=== PATIENT | male | born 1945 | race Asian ===

== ENCOUNTER 2019-08-26 22:23 | Inpatient (IN) | payer OTHER ==
[~2019-08-26] VITALS: Ht 167.6 cm; Wt 66.1 kg
[2019-08-27 01:57] VITALS: BP 148/77; PULSE 104; RESP 16
[2019-08-27 02:27] VITALS: Ht 167.6 cm; Wt 66.1 kg
[2019-08-27] MEDS ORDERED: NACL 0.9% 3 ML SYG IV SCH (02:30)
[2019-08-27] MEDS ORDERED: ONDANSETRON 4 MG INJ IV PRN (02:30)
[2019-08-27] MEDS: SOD CHLORIDE 0.9% 1,000 ML IV SCH ×2 (02:48→20:21)
[2019-08-27] MEDS: ACETAMINOPHEN 325 MG TAB PO PRN ×2 (06:14→13:51)
[2019-08-27 08:20] VITALS: BP 131/67; PULSE 76; RESP 20
[2019-08-27] MEDS: CEFTRIAXONE 1 GM/50 ML (PMX) 50 ML IVPB SCH ×2 (08:55→20:21)
[2019-08-27] MEDS: HEPARIN 5,000 UNIT/1 ML VIAL SC SCH ×2 (08:59→20:23)
[2019-08-27] MEDS: AZITHROMYCIN 500MG/NS (PMX) 250 ML IVPB SCH (10:53)
[2019-08-27 14:37] VITALS: BP 155/74; PULSE 94; RESP 20
[2019-08-27] MEDS: ALPRAZOLAM 0.5 MG TAB PO PRN (20:21)
[2019-08-27 20:31] VITALS: BP 140/70; PULSE 84; RESP 18
[2019-08-28 02:00] VITALS: BP 154/78; PULSE 96; RESP 19
[2019-08-28 07:55] VITALS: BP 133/67; PULSE 96; RESP 17
[2019-08-28] MEDS: CEFTRIAXONE 1 GM/50 ML (PMX) 50 ML IVPB SCH ×2 (08:58→19:50)
[2019-08-28] MEDS: HEPARIN 5,000 UNIT/1 ML VIAL SC SCH ×2 (08:59→19:51)
[2019-08-28] MEDS: ACETAMINOPHEN 325 MG TAB PO PRN (09:33)
[2019-08-28] MEDS: AZITHROMYCIN 500MG/NS (PMX) 250 ML IVPB SCH (09:34)
[2019-08-28] MEDS: SOD CHLORIDE 0.9% 1,000 ML IV SCH ×2 (11:30→15:52)
[2019-08-28] MEDS ORDERED: SOD PHOS MONO/DIBAS 250 MG TAB PO ONE (12:00)
[2019-08-28 14:00] VITALS: BP 118/64; PULSE 91; RESP 18
[2019-08-28] MEDS: GUAIFENESIN/DM 5ML CUP PO PRN (17:22)
[2019-08-28] MEDS: ALPRAZOLAM 0.5 MG TAB PO PRN (19:50)
[2019-08-28 20:15] VITALS: BP 159/82; PULSE 101; RESP 19
[2019-08-29 02:00] VITALS: BP 135/66; PULSE 90; RESP 18
[2019-08-29] MEDS: SOD CHLORIDE 0.9% 1,000 ML IV SCH (06:11)
[2019-08-29 08:55] VITALS: BP 161/77; PULSE 90; RESP 20
[2019-08-29] MEDS: CEFTRIAXONE 1 GM/50 ML (PMX) 50 ML IVPB SCH ×2 (09:06→20:20)
[2019-08-29] MEDS: GUAIFENESIN/DM 5ML CUP PO PRN (09:07)
[2019-08-29] MEDS: SENNA TAB PO SCH (09:08)
[2019-08-29] MEDS: HEPARIN 5,000 UNIT/1 ML VIAL SC SCH ×2 (09:09→20:23)
[2019-08-29] MEDS: AZITHROMYCIN 500MG/NS (PMX) 250 ML IVPB SCH (09:43)
[2019-08-29 14:55] VITALS: BP 159/75; PULSE 101; RESP 18
[2019-08-29] MEDS: ACETAMINOPHEN 325 MG TAB PO PRN (15:12)
[2019-08-29 16:19] VITALS: BP 137/67; PULSE 95; RESP 19
[2019-08-29 17:00] VITALS: PULSE 89
[2019-08-29 20:00] VITALS: BP 133/86; PULSE 97; RESP 18
[2019-08-30] MEDS: SOD CHLORIDE 0.9% 1,000 ML IV SCH ×2 (01:16→18:57)
[2019-08-30 02:00] VITALS: BP 163/78; PULSE 95; RESP 18
[2019-08-30 08:00] VITALS: BP 161/79; PULSE 106; RESP 16
[2019-08-30] MEDS: SENNA TAB PO SCH (09:00)
[2019-08-30] MEDS: CEFTRIAXONE 1 GM/50 ML (PMX) 50 ML IVPB SCH ×3 (09:00→21:56)
[2019-08-30] MEDS: HEPARIN 5,000 UNIT/1 ML VIAL SC SCH ×3 (09:00→22:03)
[2019-08-30] MEDS: AZITHROMYCIN 500MG/NS (PMX) 250 ML IVPB SCH ×2 (09:00→09:50)
[2019-08-30] MEDS: GUAIFENESIN/DM 5ML CUP PO PRN ×2 (09:24→17:20)
[2019-08-30 14:00] VITALS: BP 101/73; PULSE 101; RESP 18
[2019-08-30] MEDS: ACETAMINOPHEN 650MG/20.3ML CUP PO PRN (16:28)
[2019-08-30] MEDS: NYSTATIN SUSP 5 ML CUP PO SCH ×2 (17:20→21:56)
[2019-08-30 20:40] VITALS: BP 130/71; PULSE 90; RESP 18
[2019-08-31] VITALS (15 sets, daily range): BP systolic 130–195; BP diastolic 76–171; PULSE 95–116; RESP 20–31
[2019-08-31] MEDS ORDERED: IPRATROPIUM (NEB) 0.5 MG/2.5 ML AMP HHN SCH ×4 (02:00→06:30)
[2019-08-31] MEDS ORDERED: LEVALBUTEROL (NEB) 0.63 MG/3 ML AMP HHN SCH ×4 (02:30→06:30)
[2019-08-31] MEDS: IPRATROPIUM (NEB) 0.5 MG/2.5 ML AMP HHN SCH ×2 (06:05→09:00)
[2019-08-31] MEDS: FLUTICASONE/VILANTEROL 100-25 INH SCH ×2 (09:00→11:30)
[2019-08-31] MEDS: LEVOFLOXACIN 500 MG TAB PO ONE ×2 (09:00→11:31)
[2019-08-31] MEDS: AZITHROMYCIN 500MG/NS (PMX) 250 ML IVPB SCH (09:00)
[2019-08-31] MEDS ORDERED: SOD CHLORIDE 0.9% 100 ML ONE (09:29)
[2019-08-31] MEDS ORDERED: IOHEXOL 300MG/ML 150 ML BTL ONE (09:29)
[2019-08-31] MEDS ORDERED: POTASSIUM CHLORIDE (SR) 20 MEQ TAB PO STA (10:32)
[2019-08-31] MEDS: NYSTATIN SUSP 5 ML CUP PO SCH ×4 (11:29→21:09)
[2019-08-31] MEDS: CEFTRIAXONE 1 GM/50 ML (PMX) 50 ML IVPB SCH (11:30)
[2019-08-31] MEDS: SENNA TAB PO SCH (11:30)
[2019-08-31] MEDS: POTASSIUM CHLORIDE 100 ML IVPB SCH ×5 (11:30→21:10)
[2019-08-31] MEDS: POTASSIUM CHLORIDE 20 MEQ POWDER FOR ORAL SOLN PO ONE ×2 (11:30→11:39)
[2019-08-31] MEDS: HEPARIN 5,000 UNIT/1 ML VIAL SC SCH ×2 (11:37→21:24)
[2019-08-31] MEDS ORDERED: VANCOMYCIN IV PER PHARMACY XX SCH (12:00)
[2019-08-31] MEDS: IPRATROPIUM (NEB) 0.5 MG/2.5 ML AMP HHN PRN ×2 (12:33→16:47)
[2019-08-31] MEDS: LEVALBUTEROL (NEB) 0.63 MG/3 ML AMP HHN PRN ×2 (12:33→16:47)
[2019-08-31] MEDS ORDERED: VANCOMYCIN 1.25 GM/NS 250 ML 250 ML IVPB SCH (14:00)
[2019-08-31] MEDS: SOD CHLORIDE 0.9% 1,000 ML IV SCH (15:37)
[2019-08-31] MEDS: CEFEPIME 1GM/50 ML (PMX) 50 ML IVPB SCH ×2 (15:43→21:11)
[2019-08-31] MEDS: LEVOFLOXACIN 500MG/D5W (PMX) 100 ML IVPB SCH (15:50)
[2019-09-01 00:40] VITALS: BP 160/84; PULSE 92; RESP 25
[2019-09-01 03:37] VITALS: BP 139/85; PULSE 98; RESP 23
[2019-09-01] MEDS: VANCOMYCIN 750 MG (PMX) 250 ML IVPB SCH ×2 (03:39→13:52)
[2019-09-01] MEDS ORDERED: LEVOFLOXACIN 500 MG TAB PO SCH (06:00)
[2019-09-01 07:48] VITALS: BP 157/88; PULSE 99; RESP 18
[2019-09-01] MEDS: SENNA TAB PO SCH (08:23)
[2019-09-01] MEDS: NYSTATIN SUSP 5 ML CUP PO SCH ×4 (08:26→20:45)
[2019-09-01] MEDS: CEFEPIME 1GM/50 ML (PMX) 50 ML IVPB SCH ×2 (08:26→20:42)
[2019-09-01] MEDS: HEPARIN 5,000 UNIT/1 ML VIAL SC SCH ×2 (08:35→20:44)
[2019-09-01] MEDS ORDERED: SOD FERRIC GLUC COMPLX 125 MG in SOD CHLORIDE 0.9% 100 ML IVPB ONE (09:00)
[2019-09-01] MEDS ORDERED: IOHEXOL 14.3 MG(I)/ML (ADULT) BTL PO ONE (09:00)
[2019-09-01] MEDS: SOD CHLORIDE 0.9% 1,000 ML IV SCH (10:17)
[2019-09-01] MEDS: LEVOFLOXACIN 500MG/D5W (PMX) 100 ML IVPB SCH (11:44)
[2019-09-01 12:12] VITALS: BP 158/90; PULSE 99; RESP 20
[2019-09-01] MEDS: SOD FERRIC GLUC COMPLX 125 MG in SOD CHLORIDE 0.9% 100 ML IVPB SCH (13:44)
[2019-09-01 16:33] VITALS: BP 147/89; PULSE 97; RESP 18
[2019-09-01 19:54] VITALS: BP 166/86; PULSE 86; RESP 20
[2019-09-02] VITALS (8 sets, daily range): BP systolic 116–177; BP diastolic 77–97; PULSE 94–104; RESP 18–22
[2019-09-02] MEDS: VANCOMYCIN 750 MG (PMX) 250 ML IVPB SCH (01:44)
[2019-09-02] MEDS: NYSTATIN SUSP 5 ML CUP PO SCH ×4 (08:12→20:08)
[2019-09-02] MEDS: SENNA TAB PO SCH (08:12)
[2019-09-02] MEDS: CEFEPIME 1GM/50 ML (PMX) 50 ML IVPB SCH ×2 (08:36→20:31)
[2019-09-02] MEDS: HEPARIN 5,000 UNIT/1 ML VIAL SC SCH ×2 (08:42→20:29)
[2019-09-02] MEDS: VANCOMYCIN 1.25 GM/NS 250 ML 250 ML IVPB SCH ×2 (10:21→22:40)
[2019-09-02] MEDS ORDERED: POTASSIUM CHLORIDE 100 ML IVPB ONE (11:00)
[2019-09-02] MEDS: LEVOFLOXACIN 500MG/D5W (PMX) 100 ML IVPB SCH (11:59)
[2019-09-02] MEDS: SOD CHLORIDE 0.9% 1,000 ML IV SCH (12:01)
[2019-09-02] MEDS: SOD FERRIC GLUC COMPLX 125 MG in SOD CHLORIDE 0.9% 100 ML IVPB SCH (14:12)
[2019-09-02] MEDS: FLUCONAZOLE 200 MG (PMX) 100 ML IVPB SCH (16:46)
[2019-09-02] MEDS ORDERED: hydrALAzine 20 MG INJ IV PRN (20:00)
[2019-09-03] VITALS (27 sets, daily range): BP systolic 122–174; BP diastolic 67–110; PULSE 75–107; RESP 17–35
[2019-09-03] MEDS: SOD CHLORIDE 0.9% 1,000 ML IV SCH ×2 (05:24→12:23)
[2019-09-03] MEDS: CEFEPIME 1GM/50 ML (PMX) 50 ML IVPB SCH (08:28)
[2019-09-03] MEDS: HEPARIN 5,000 UNIT/1 ML VIAL SC SCH ×2 (08:34→21:43)
[2019-09-03] MEDS: SENNA TAB PO SCH (09:06)
[2019-09-03] MEDS: NYSTATIN SUSP 5 ML CUP PO SCH ×4 (09:06→21:00)
[2019-09-03] MEDS ORDERED: POTASSIUM CHLORIDE (SR) 20 MEQ TAB PO STA (09:28)
[2019-09-03] MEDS: IPRATROPIUM (NEB) 0.5 MG/2.5 ML AMP HHN SCH ×3 (13:01→21:46)
[2019-09-03] MEDS: LEVALBUTEROL (NEB) 1.25 MG/0.5 ML AMP HHN SCH ×3 (13:01→21:46)
[2019-09-03] MEDS: PIPER-TAZO 3.375 GM IV (PMX) 100 ML IVPB SCH ×3 (13:13→23:58)
[2019-09-03] MEDS: LEVOFLOXACIN 500MG/D5W (PMX) 100 ML IVPB SCH (14:19)
[2019-09-03] MEDS: METHYLPREDNISOLONE 125 MG INJ IV SCH ×2 (14:30→21:40)
[2019-09-03] MEDS: VANCOMYCIN 1.25 GM/NS 250 ML 250 ML IVPB SCH (15:40)
[2019-09-03] MEDS: FLUCONAZOLE 200 MG (PMX) 100 ML IVPB SCH (19:11)
[2019-09-03] MEDS: SOD FERRIC GLUC COMPLX 125 MG in SOD CHLORIDE 0.9% 100 ML IVPB SCH (19:17)
[2019-09-03] MEDS: POTASSIUM CHLORIDE 100 ML IVPB SCH ×2 (20:29→21:40)
[2019-09-04] VITALS (33 sets, daily range): BP systolic 114–176; BP diastolic 69–115; PULSE 76–107; RESP 16–40
[2019-09-04] MEDS: LEVALBUTEROL (NEB) 1.25 MG/0.5 ML AMP HHN SCH ×6 (01:00→20:30)
[2019-09-04] MEDS: VANCOMYCIN 1.25 GM/NS 250 ML 250 ML IVPB SCH ×2 (04:32→16:56)
[2019-09-04] MEDS: PIPER-TAZO 3.375 GM IV (PMX) 100 ML IVPB SCH ×4 (06:19→23:40)
[2019-09-04] MEDS: METHYLPREDNISOLONE 125 MG INJ IV SCH ×3 (06:19→21:03)
[2019-09-04] MEDS: SOD CHLORIDE 0.9% 1,000 ML IV SCH (08:39)
[2019-09-04] MEDS: IPRATROPIUM (NEB) 0.5 MG/2.5 ML AMP HHN PRN (08:43)
[2019-09-04] MEDS: SENNA TAB PO SCH (09:00)
[2019-09-04] MEDS: IPRATROPIUM (NEB) 0.5 MG/2.5 ML AMP HHN SCH ×4 (09:00→20:30)
[2019-09-04] MEDS: NYSTATIN SUSP 5 ML CUP PO SCH ×4 (09:00→20:53)
[2019-09-04] MEDS: HEPARIN 5,000 UNIT/1 ML VIAL SC SCH ×2 (09:29→21:00)
[2019-09-04] MEDS: LEVOFLOXACIN 500MG/D5W (PMX) 100 ML IVPB SCH (11:14)
[2019-09-04] MEDS: FLUCONAZOLE 200 MG (PMX) 100 ML IVPB SCH (15:49)
[2019-09-04] MEDS ORDERED: DOCUSATE SODIUM 10 MG/ML (10ML CUP) NGT PRN (23:00)
[2019-09-04] MEDS: ACETAMINOPHEN 650MG/20.3ML CUP PO PRN (23:39)
[2019-09-05] VITALS (31 sets, daily range): BP systolic 135–167; BP diastolic 66–117; PULSE 75–105; RESP 18–41
[2019-09-05] MEDS: IPRATROPIUM (NEB) 0.5 MG/2.5 ML AMP HHN SCH ×5 (01:14→20:47)
[2019-09-05] MEDS: LEVALBUTEROL (NEB) 1.25 MG/0.5 ML AMP HHN SCH ×5 (01:14→20:47)
[2019-09-05] MEDS: SOD CHLORIDE 0.9% 1,000 ML IV SCH (02:11)
[2019-09-05] MEDS: VANCOMYCIN 1.25 GM/NS 250 ML 250 ML IVPB SCH ×2 (04:52→17:51)
[2019-09-05] MEDS: METHYLPREDNISOLONE 125 MG INJ IV SCH ×3 (05:29→22:44)
[2019-09-05] MEDS: PIPER-TAZO 3.375 GM IV (PMX) 100 ML IVPB SCH ×3 (05:29→17:52)
[2019-09-05] MEDS: IPRATROPIUM (NEB) 0.5 MG/2.5 ML AMP HHN PRN (05:59)
[2019-09-05] MEDS: SENNA TAB PO SCH (09:00)
[2019-09-05] MEDS: NYSTATIN SUSP 5 ML CUP PO SCH ×4 (09:03→20:58)
[2019-09-05] MEDS: HEPARIN 5,000 UNIT/1 ML VIAL SC SCH ×2 (09:12→20:58)
[2019-09-05] MEDS: SOD CHLORIDE 0.45% 1,000 ML IV SCH (10:59)
[2019-09-05] MEDS: LEVOFLOXACIN 500MG/D5W (PMX) 100 ML IVPB SCH (13:04)
[2019-09-05] MEDS: FLUCONAZOLE 200 MG (PMX) 100 ML IVPB SCH (17:51)
[2019-09-05] MEDS ORDERED: GLUCOSE GEL 15 GRAM TUBE BUCCAL PRN (20:30)
[2019-09-05] MEDS ORDERED: GLUCAGON 1 MG INJ IM PRN (20:30)
[2019-09-05] MEDS ORDERED: GLUCOSE GEL 15 GRAM TUBE PO PRN ×2 (20:30)
[2019-09-05] MEDS ORDERED: DEXTROSE 50% 50 ML SYRINGE IV PRN ×2 (20:30)
[2019-09-05] MEDS: INSULIN ASPART [NOVOLOG] 3 ML PEN SC SCH (20:57)
[2019-09-06] VITALS (24 sets, daily range): BP systolic 106–164; BP diastolic 61–117; PULSE 69–98; RESP 17–34
[2019-09-06] MEDS: SOD CHLORIDE 0.45% 1,000 ML IV SCH (00:37)
[2019-09-06] MEDS: PIPER-TAZO 3.375 GM IV (PMX) 100 ML IVPB SCH ×4 (00:38→18:55)
[2019-09-06] MEDS: INSULIN ASPART [NOVOLOG] 3 ML PEN SC SCH ×6 (00:41→21:27)
[2019-09-06] MEDS: IPRATROPIUM (NEB) 0.5 MG/2.5 ML AMP HHN SCH ×4 (01:19→19:46)
[2019-09-06] MEDS: LEVALBUTEROL (NEB) 1.25 MG/0.5 ML AMP HHN SCH ×3 (01:19→19:46)
[2019-09-06] MEDS: POTASSIUM CHLORIDE 50 ML IVPB SCH ×2 (03:58→05:42)
[2019-09-06] MEDS: VANCOMYCIN 1.25 GM/NS 250 ML 250 ML IVPB SCH ×2 (03:59→18:56)
[2019-09-06] MEDS: METHYLPREDNISOLONE 125 MG INJ IV SCH ×3 (05:48→21:29)
[2019-09-06] MEDS: ALPRAZOLAM 0.5 MG TAB PO PRN (07:55)
[2019-09-06] MEDS ORDERED: HYDROmorphONE 0.5 MG/0.5 ML SYG IV SCH (08:41)
[2019-09-06] MEDS: SENNA TAB PO SCH (09:00)
[2019-09-06] MEDS: NYSTATIN SUSP 5 ML CUP PO SCH ×4 (11:26→21:25)
[2019-09-06] MEDS: FUROSEMIDE 40 MG INJ IV SCH ×2 (11:26→18:55)
[2019-09-06] MEDS ORDERED: POTASSIUM PHOSPHATE 40 MEQ in SOD CHLORIDE 0.9% 250 ML IVPB ONE (12:30)
[2019-09-06] MEDS: HEPARIN 5,000 UNIT/1 ML VIAL SC SCH ×2 (12:56→21:28)
[2019-09-06] MEDS: LEVALBUTEROL (NEB) 0.63 MG/3 ML AMP HHN PRN ×2 (13:49→13:50)
[2019-09-06] MEDS: FLUCONAZOLE 200 MG (PMX) 100 ML IVPB SCH (18:17)
[2019-09-07] VITALS (24 sets, daily range): BP systolic 87–139; BP diastolic 60–87; PULSE 65–103; RESP 12–34
[2019-09-07] MEDS: PIPER-TAZO 3.375 GM IV (PMX) 100 ML IVPB SCH ×2 (00:24→05:48)
[2019-09-07] MEDS: INSULIN ASPART [NOVOLOG] 3 ML PEN SC SCH ×6 (00:34→21:18)
[2019-09-07] MEDS: IPRATROPIUM (NEB) 0.5 MG/2.5 ML AMP HHN SCH ×4 (01:11→20:10)
[2019-09-07] MEDS: LEVALBUTEROL (NEB) 1.25 MG/0.5 ML AMP HHN SCH ×4 (01:11→20:10)
[2019-09-07] MEDS: VANCOMYCIN 1.25 GM/NS 250 ML 250 ML IVPB SCH (04:33)
[2019-09-07] MEDS: METHYLPREDNISOLONE 125 MG INJ IV SCH ×3 (05:48→22:20)
[2019-09-07] MEDS: FUROSEMIDE 40 MG INJ IV SCH ×2 (05:48→18:36)
[2019-09-07] MEDS: SENNA TAB PO SCH (09:00)
[2019-09-07] MEDS: NYSTATIN SUSP 5 ML CUP PO SCH ×4 (10:07→21:13)
[2019-09-07] MEDS: HEPARIN 5,000 UNIT/1 ML VIAL SC SCH ×2 (10:20→21:17)
[2019-09-07] MEDS: FLUCONAZOLE 200 MG (PMX) 100 ML IVPB SCH (18:37)
[2019-09-07] MEDS: CEFEPIME 1GM/50 ML (PMX) 50 ML IVPB SCH (21:13)
[2019-09-08] VITALS (24 sets, daily range): BP systolic 104–151; BP diastolic 58–86; PULSE 68–92; RESP 13–30
[2019-09-08] MEDS ORDERED: SOD CHLORIDE 0.9% 100 ML ONE (00:12)
[2019-09-08] MEDS ORDERED: IOHEXOL 300MG/ML 150 ML BTL ONE (00:12)
[2019-09-08] MEDS: INSULIN ASPART [NOVOLOG] 3 ML PEN SC SCH ×6 (01:00→21:15)
[2019-09-08] MEDS: LEVALBUTEROL (NEB) 1.25 MG/0.5 ML AMP HHN SCH ×4 (01:38→19:22)
[2019-09-08] MEDS: IPRATROPIUM (NEB) 0.5 MG/2.5 ML AMP HHN SCH ×4 (01:38→19:22)
[2019-09-08] MEDS: FUROSEMIDE 40 MG INJ IV SCH ×2 (06:22→18:21)
[2019-09-08] MEDS: METHYLPREDNISOLONE 125 MG INJ IV SCH ×3 (06:23→21:39)
[2019-09-08] MEDS: SENNA TAB PO SCH (08:40)
[2019-09-08] MEDS: CEFEPIME 1GM/50 ML (PMX) 50 ML IVPB SCH ×2 (08:42→21:06)
[2019-09-08] MEDS: NYSTATIN SUSP 5 ML CUP PO SCH ×4 (08:44→21:06)
[2019-09-08] MEDS: HEPARIN 5,000 UNIT/1 ML VIAL SC SCH ×2 (08:53→21:14)
[2019-09-08] MEDS: POTASSIUM CHLORIDE 20 MEQ POWDER FOR ORAL SOLN PO SCH (14:36)
[2019-09-09] VITALS (24 sets, daily range): BP systolic 110–143; BP diastolic 57–84; PULSE 75–114; RESP 14–30
[2019-09-09] MEDS: INSULIN ASPART [NOVOLOG] 3 ML PEN SC SCH ×6 (01:04→20:25)
[2019-09-09] MEDS: IPRATROPIUM (NEB) 0.5 MG/2.5 ML AMP HHN SCH ×4 (01:38→20:03)
[2019-09-09] MEDS: LEVALBUTEROL (NEB) 1.25 MG/0.5 ML AMP HHN SCH ×4 (01:38→20:03)
[2019-09-09] MEDS: FUROSEMIDE 40 MG INJ IV SCH (05:08)
[2019-09-09] MEDS: METHYLPREDNISOLONE 125 MG INJ IV SCH ×3 (05:40→21:55)
[2019-09-09] MEDS: SENNA TAB PO SCH (09:00)
[2019-09-09] MEDS ORDERED: FLUCONAZOLE 100 MG TAB PO SCH (09:00)
[2019-09-09] MEDS: CEFEPIME 1GM/50 ML (PMX) 50 ML IVPB SCH ×2 (09:23→20:22)
[2019-09-09] MEDS: NYSTATIN SUSP 5 ML CUP PO SCH ×4 (09:23→20:22)
[2019-09-09] MEDS: HEPARIN 5,000 UNIT/1 ML VIAL SC SCH ×2 (09:40→20:25)
[2019-09-09] MEDS ORDERED: INSULIN ASPART [NOVOLOG] 3 ML PEN SC SCH (11:30)
[2019-09-10] VITALS (24 sets, daily range): BP systolic 99–138; BP diastolic 57–95; PULSE 83–109; RESP 11–30
[2019-09-10] MEDS: INSULIN ASPART [NOVOLOG] 3 ML PEN SC SCH ×6 (00:25→21:02)
[2019-09-10] MEDS: LEVALBUTEROL (NEB) 1.25 MG/0.5 ML AMP HHN SCH ×4 (01:40→20:20)
[2019-09-10] MEDS: IPRATROPIUM (NEB) 0.5 MG/2.5 ML AMP HHN SCH ×4 (01:40→20:20)
[2019-09-10] MEDS: METHYLPREDNISOLONE 125 MG INJ IV SCH (06:27)
[2019-09-10] MEDS ORDERED: FLUCONAZOLE 100 MG TAB NGT SCH (09:00)
[2019-09-10] MEDS: SENNA TAB NGT SCH (09:00)
[2019-09-10] MEDS ORDERED: FUROSEMIDE 40 MG TAB PO SCH (09:00)
[2019-09-10] MEDS: CEFEPIME 1GM/50 ML (PMX) 50 ML IVPB SCH (09:51)
[2019-09-10] MEDS: NYSTATIN SUSP 5 ML CUP PO SCH ×4 (09:54→21:01)
[2019-09-10] MEDS: FUROSEMIDE 40 MG TAB NGT SCH (09:55)
[2019-09-10] MEDS: HEPARIN 5,000 UNIT/1 ML VIAL SC SCH ×2 (09:57→21:01)
[2019-09-10] MEDS ORDERED: NPH, HUMAN INSULIN ISOPHANE 3ML VIAL SC SCH (14:00)
[2019-09-10] MEDS: METHYLPREDNISOLONE 40 MG INJ IV SCH (20:59)
[2019-09-10] MEDS: NPH, HUMAN INSULIN ISOPHANE 3ML VIAL SC SCH (21:01)
[2019-09-11] VITALS (21 sets, daily range): BP systolic 113–138; BP diastolic 59–89; PULSE 87–113; RESP 6–26
[2019-09-11] MEDS: INSULIN ASPART [NOVOLOG] 3 ML PEN SC SCH ×6 (00:49→22:14)
[2019-09-11] MEDS: LEVALBUTEROL (NEB) 1.25 MG/0.5 ML AMP HHN SCH ×4 (01:02→19:27)
[2019-09-11] MEDS: IPRATROPIUM (NEB) 0.5 MG/2.5 ML AMP HHN SCH ×4 (01:02→19:27)
[2019-09-11] MEDS: SENNA TAB NGT SCH (09:00)
[2019-09-11] MEDS: NPH, HUMAN INSULIN ISOPHANE 3ML VIAL SC SCH ×2 (09:16→22:13)
[2019-09-11] MEDS: METHYLPREDNISOLONE 40 MG INJ IV SCH ×2 (09:17→22:03)
[2019-09-11] MEDS: HEPARIN 5,000 UNIT/1 ML VIAL SC SCH ×2 (09:17→22:14)
[2019-09-11] MEDS: NYSTATIN SUSP 5 ML CUP PO SCH ×4 (09:17→22:03)
[2019-09-11] MEDS: FUROSEMIDE 40 MG TAB NGT SCH (09:54)
[2019-09-11] MEDS ORDERED: CEFAZOLIN 1 GM/50 ML (PMX) 50 ML IVPB ONE (16:30)
[2019-09-11] MEDS ORDERED: DEXTROSE 5% 1,000 ML IV SCH (17:00)
[2019-09-12] VITALS (18 sets, daily range): BP systolic 110–149; BP diastolic 59–83; PULSE 84–105; RESP 16–20
[2019-09-12] MEDS: INSULIN ASPART [NOVOLOG] 3 ML PEN SC SCH ×6 (00:48→20:37)
[2019-09-12] MEDS: IPRATROPIUM (NEB) 0.5 MG/2.5 ML AMP HHN SCH ×4 (01:11→19:51)
[2019-09-12] MEDS: LEVALBUTEROL (NEB) 1.25 MG/0.5 ML AMP HHN SCH ×4 (01:11→19:51)
[2019-09-12] MEDS: METHYLPREDNISOLONE 40 MG INJ IV SCH (08:46)
[2019-09-12] MEDS: NPH, HUMAN INSULIN ISOPHANE 3ML VIAL SC SCH (08:57)
[2019-09-12] MEDS: FUROSEMIDE 40 MG TAB NGT SCH (09:00)
[2019-09-12] MEDS: SENNA TAB NGT SCH (09:00)
[2019-09-12] MEDS: NYSTATIN SUSP 5 ML CUP PO SCH ×4 (13:00→20:38)
[2019-09-12] MEDS ORDERED: PROPOFOL 200 MG INJ ONE (17:50)
[2019-09-12] MEDS ORDERED: PROPOFOL 40 ML ONE (17:50)
[2019-09-12] MEDS ORDERED: LIDOCAINE 2% (SDV) 5 ML INJ ONE (17:50)
[2019-09-12] MEDS ORDERED: CEFAZOLIN 1 GM/50 ML (PMX) 50 ML IVPB ONE (17:51)
[2019-09-12] MEDS ORDERED: DIPHENHYDRAMINE 50 MG INJ IV PRN (19:00)
[2019-09-12] MEDS ORDERED: FENTAnyl 50 MCG/ML VIAL IV PRN (19:00)
[2019-09-12] MEDS ORDERED: MEPERIDINE 25 MG INJ IV PRN (19:00)
[2019-09-13 00:26] VITALS: BP 126/75; PULSE 90; RESP 18
[2019-09-13] MEDS: INSULIN ASPART [NOVOLOG] 3 ML PEN SC SCH ×6 (01:00→21:00)
[2019-09-13] MEDS: LEVALBUTEROL (NEB) 1.25 MG/0.5 ML AMP HHN SCH ×4 (01:32→20:00)
[2019-09-13] MEDS: IPRATROPIUM (NEB) 0.5 MG/2.5 ML AMP HHN SCH ×4 (01:32→20:00)
[2019-09-13 04:38] VITALS: BP 120/78; PULSE 72; RESP 16
[2019-09-13 07:45] VITALS: BP 123/66; PULSE 93; RESP 22
[2019-09-13] MEDS: SENNA TAB NGT SCH (08:34)
[2019-09-13] MEDS: METHYLPREDNISOLONE 40 MG INJ IV SCH (08:34)
[2019-09-13] MEDS: NYSTATIN SUSP 5 ML CUP PO SCH ×4 (08:34→21:25)
[2019-09-13] MEDS: FUROSEMIDE 40 MG TAB NGT SCH (08:35)
[2019-09-13] MEDS: HEPARIN 5,000 UNIT/1 ML VIAL SC SCH ×2 (08:48→21:28)
[2019-09-13] MEDS: NPH, HUMAN INSULIN ISOPHANE 3ML VIAL SC SCH (08:50)
[2019-09-13] MEDS: ASCORBIC ACID 500 MG TAB NGT SCH (12:25)
[2019-09-13] MEDS: MULTIVITAMINS THERAPEUTIC TAB PO SCH (12:25)
[2019-09-13] MEDS: FOLIC ACID 1 MG TAB PO SCH (12:25)
[2019-09-13] MEDS: ZINC SULFATE 220 MG CAP GTB SCH (12:25)
[2019-09-13 15:31] VITALS: BP 123/74; PULSE 101; RESP 22
[2019-09-13] MEDS: SUCRALFATE (100 MG/ML) 10ML CUP GTB SCH ×2 (16:38→21:25)
[2019-09-13] MEDS: PANTOPRAZOLE 40 MG INJ IV SCH (18:09)
[2019-09-13 19:27] VITALS: BP 136/78; PULSE 95; RESP 20
[2019-09-13 23:58] VITALS: BP 149/78; PULSE 93; RESP 20
[2019-09-14] MEDS: INSULIN ASPART [NOVOLOG] 3 ML PEN SC SCH ×6 (01:10→20:29)
[2019-09-14] MEDS: IPRATROPIUM (NEB) 0.5 MG/2.5 ML AMP HHN SCH ×4 (02:00→20:00)
[2019-09-14] MEDS: LEVALBUTEROL (NEB) 1.25 MG/0.5 ML AMP HHN SCH ×4 (02:00→20:00)
[2019-09-14 03:42] VITALS: BP 110/68; PULSE 88; RESP 20
[2019-09-14] MEDS: PANTOPRAZOLE 40 MG INJ IV SCH ×2 (05:41→17:51)
[2019-09-14 07:38] VITALS: BP 110/64; PULSE 75; RESP 22
[2019-09-14] MEDS: ZINC SULFATE 220 MG CAP GTB SCH (09:45)
[2019-09-14] MEDS: SUCRALFATE (100 MG/ML) 10ML CUP GTB SCH ×4 (09:45→21:00)
[2019-09-14] MEDS: NYSTATIN SUSP 5 ML CUP PO SCH ×4 (09:46→21:00)
[2019-09-14] MEDS: SENNA TAB NGT SCH (09:46)
[2019-09-14] MEDS: MULTIVITAMINS THERAPEUTIC TAB PO SCH (09:46)
[2019-09-14] MEDS: ASCORBIC ACID 500 MG TAB NGT SCH (09:46)
[2019-09-14] MEDS: FOLIC ACID 1 MG TAB PO SCH (09:47)
[2019-09-14] MEDS: HEPARIN 5,000 UNIT/1 ML VIAL SC SCH ×2 (09:50→21:08)
[2019-09-14] MEDS: METHYLPREDNISOLONE 40 MG INJ IV SCH (09:51)
[2019-09-14] MEDS: NPH, HUMAN INSULIN ISOPHANE 3ML VIAL SC SCH (09:51)
[2019-09-14] MEDS: FUROSEMIDE 40 MG TAB NGT SCH (09:52)
[2019-09-14 12:03] VITALS: BP 110/64; PULSE 84; RESP 20
[2019-09-14] MEDS: DEXTROSE 5% 1,000 ML IV SCH (13:09)
[2019-09-14 15:38] VITALS: BP 117/62; PULSE 88; RESP 22
[2019-09-14 19:43] VITALS: BP 110/71; PULSE 95; RESP 20
[2019-09-14 23:18] VITALS: BP 121/67; PULSE 84; RESP 20
[2019-09-15] MEDS: INSULIN ASPART [NOVOLOG] 3 ML PEN SC SCH ×6 (00:52→20:23)
[2019-09-15] MEDS: IPRATROPIUM (NEB) 0.5 MG/2.5 ML AMP HHN SCH ×4 (01:11→20:00)
[2019-09-15] MEDS: LEVALBUTEROL (NEB) 1.25 MG/0.5 ML AMP HHN SCH ×4 (01:11→20:00)
[2019-09-15] MEDS: DEXTROSE 5% 1,000 ML IV SCH (02:58)
[2019-09-15 04:00] VITALS: BP 118/52; PULSE 90; RESP 20
[2019-09-15] MEDS: PANTOPRAZOLE 40 MG INJ IV SCH ×2 (05:06→17:13)
[2019-09-15 07:29] VITALS: BP 109/62; PULSE 93; RESP 20
[2019-09-15] MEDS: SUCRALFATE (100 MG/ML) 10ML CUP GTB SCH ×4 (09:03→20:15)
[2019-09-15] MEDS: NYSTATIN SUSP 5 ML CUP PO SCH ×4 (09:03→20:15)
[2019-09-15] MEDS: MULTIVITAMINS THERAPEUTIC TAB PO SCH (09:04)
[2019-09-15] MEDS: HEPARIN 5,000 UNIT/1 ML VIAL SC SCH ×2 (09:04→20:24)
[2019-09-15] MEDS: METHYLPREDNISOLONE 40 MG INJ IV SCH (09:04)
[2019-09-15] MEDS: ASCORBIC ACID 500 MG TAB NGT SCH (09:04)
[2019-09-15] MEDS: FOLIC ACID 1 MG TAB PO SCH (09:04)
[2019-09-15] MEDS: SENNA TAB NGT SCH (09:04)
[2019-09-15] MEDS: ZINC SULFATE 220 MG CAP GTB SCH (09:04)
[2019-09-15] MEDS: NPH, HUMAN INSULIN ISOPHANE 3ML VIAL SC SCH (09:06)
[2019-09-15] MEDS: FUROSEMIDE 40 MG TAB NGT SCH (09:07)
[2019-09-15 11:25] VITALS: BP 124/63; PULSE 86; RESP 20
[2019-09-15 15:26] VITALS: BP 99/58; RESP 22
[2019-09-15] MEDS ORDERED: DEXTROSE 5% 1,000 ML IV SCH (16:00)
[2019-09-15 20:00] VITALS: BP 100/55; PULSE 83; RESP 20
[2019-09-15 23:58] VITALS: BP 106/55; PULSE 77; RESP 20
[2019-09-16] MEDS: INSULIN ASPART [NOVOLOG] 3 ML PEN SC SCH ×6 (00:58→20:33)
[2019-09-16] MEDS: LEVALBUTEROL (NEB) 1.25 MG/0.5 ML AMP HHN SCH (02:00)
[2019-09-16] MEDS: IPRATROPIUM (NEB) 0.5 MG/2.5 ML AMP HHN SCH (02:00)
[2019-09-16 04:00] VITALS: BP 124/63; PULSE 82; RESP 20
[2019-09-16] MEDS: LANSOPRAZOLE (SOLTAB) 30 MG TAB GTB SCH ×2 (05:58→16:36)
[2019-09-16 07:47] VITALS: BP 109/59; PULSE 81; RESP 16
[2019-09-16] MEDS: SENNA TAB NGT SCH (08:21)
[2019-09-16] MEDS: MULTIVITAMINS THERAPEUTIC TAB PO SCH (08:21)
[2019-09-16] MEDS: SUCRALFATE (100 MG/ML) 10ML CUP GTB SCH ×4 (08:21→20:30)
[2019-09-16] MEDS: FOLIC ACID 1 MG TAB PO SCH (08:21)
[2019-09-16] MEDS: ZINC SULFATE 220 MG CAP GTB SCH (08:21)
[2019-09-16] MEDS: METHYLPREDNISOLONE 40 MG INJ IV SCH (08:21)
[2019-09-16] MEDS: NYSTATIN SUSP 5 ML CUP PO SCH ×2 (08:21→11:59)
[2019-09-16] MEDS: FUROSEMIDE 40 MG TAB NGT SCH (08:21)
[2019-09-16] MEDS: NPH, HUMAN INSULIN ISOPHANE 3ML VIAL SC SCH (08:41)
[2019-09-16] MEDS: HEPARIN 5,000 UNIT/1 ML VIAL SC SCH ×2 (08:41→20:36)
[2019-09-16] MEDS: ASCORBIC ACID 500 MG TAB NGT SCH (09:00)
[2019-09-16 11:28] VITALS: BP 97/56; PULSE 78; RESP 16
[2019-09-16] MEDS: ALBUTEROL/IPRATROPIUM (NEB) 3 ML AMP HHN PRN (15:27)
[2019-09-16 15:41] VITALS: BP 95/51; PULSE 81; RESP 20
[2019-09-16 20:00] VITALS: BP 103/58; PULSE 81; RESP 19
[2019-09-16] MEDS: ACETAMINOPHEN 650MG/20.3ML CUP PO PRN (20:30)
[2019-09-17] VITALS: BP 107/59; PULSE 84; RESP 18
[2019-09-17] MEDS: INSULIN ASPART [NOVOLOG] 3 ML PEN SC SCH ×6 (01:00→22:50)
[2019-09-17 04:00] VITALS: BP 122/59; PULSE 71; RESP 19
[2019-09-17] MEDS: LANSOPRAZOLE (SOLTAB) 30 MG TAB GTB SCH ×2 (05:20→17:46)
[2019-09-17 07:29] VITALS: BP 107/59; PULSE 87; RESP 18
[2019-09-17] MEDS: SUCRALFATE (100 MG/ML) 10ML CUP GTB SCH ×4 (09:09→22:50)
[2019-09-17] MEDS: MULTIVITAMINS THERAPEUTIC TAB PO SCH (09:09)
[2019-09-17] MEDS: FOLIC ACID 1 MG TAB PO SCH (09:09)
[2019-09-17] MEDS: ZINC SULFATE 220 MG CAP GTB SCH (09:10)
[2019-09-17] MEDS: ASCORBIC ACID 500 MG TAB NGT SCH (09:11)
[2019-09-17] MEDS: HEPARIN 5,000 UNIT/1 ML VIAL SC SCH ×2 (09:16→22:53)
[2019-09-17] MEDS: SENNA TAB NGT SCH (09:17)
[2019-09-17] MEDS: ACETAMINOPHEN 650MG/20.3ML CUP PO PRN (10:49)
[2019-09-17 11:33] VITALS: BP 119/59; PULSE 83; RESP 16
[2019-09-17 15:37] VITALS: BP 91/52; PULSE 77; RESP 16
[2019-09-17] MEDS: ALBUTEROL/IPRATROPIUM (NEB) 3 ML AMP HHN PRN (17:25)
[2019-09-17 19:30] VITALS: BP 103/55; PULSE 80; RESP 16
[2019-09-18 00:14] VITALS: BP 101/58; PULSE 84; RESP 16
[2019-09-18] MEDS: INSULIN ASPART [NOVOLOG] 3 ML PEN SC SCH ×5 (02:03→17:00)
[2019-09-18 03:54] VITALS: BP 102/55; PULSE 74; RESP 16
[2019-09-18] MEDS: LANSOPRAZOLE (SOLTAB) 30 MG TAB GTB SCH ×2 (05:40→17:41)
[2019-09-18 08:06] VITALS: BP_SYST 121; BP_SYST 169; BP_DIAS 68; BP_DIAS 76; PULSE 80; RESP 17
[2019-09-18] MEDS: SUCRALFATE (100 MG/ML) 10ML CUP GTB SCH ×3 (08:10→17:41)
[2019-09-18] MEDS: SENNA TAB NGT SCH (08:11)
[2019-09-18] MEDS: ZINC SULFATE 220 MG CAP GTB SCH (08:12)
[2019-09-18] MEDS: FOLIC ACID 1 MG TAB PO SCH (08:13)
[2019-09-18] MEDS: ASCORBIC ACID 500 MG TAB NGT SCH (08:13)
[2019-09-18] MEDS: MULTIVITAMINS THERAPEUTIC TAB PO SCH (08:13)
[2019-09-18] MEDS: HEPARIN 5,000 UNIT/1 ML VIAL SC SCH (08:14)
[2019-09-18 11:17] VITALS: BP 113/56; PULSE 81; RESP 18
[2019-09-18] MEDS: ACETAMINOPHEN 650MG/20.3ML CUP PO PRN (13:00)
[2019-09-18 14:55] VITALS: BP 108/59; PULSE 78; RESP 18
== END 2019-09-18 18:53 | DRG 871 ==
LOC: PP2 08-27 01:22 → ICU 08-31 07:20 → 6WM 08-31 20:19 → ICU 09-03 11:15 → 6WM 09-11 18:58
PROVIDERS: ADMIT Internal Medicine; ATTEND Internal Medicine
PROC: 0DH63UZ Insertion of Feeding Device into Stomach, Percutaneous Approach (ICD-10-PCS; principal; 2019-09-12 17:00)
DX: A41.9 Sepsis, unspecified organism (principal); J18.9 Pneumonia, unspecified organism; J96.01 Acute respiratory failure with hypoxia; B37.0 Candidal stomatitis; E44.1 Mild protein-calorie malnutrition; A31.0 Pulmonary mycobacterial infection; R64 Cachexia; K11.7 Disturbances of salivary secretion; Z68.23 Body mass index [BMI] 23.0-23.9, adult; Z51.0 Encounter for antineoplastic radiation therapy; Y95 Nosocomial condition; E87.6 Hypokalemia; D64.9 Anemia, unspecified; Z85.72 Personal history of non-Hodgkin lymphomas; E03.9 Hypothyroidism, unspecified; J44.9 Chronic obstructive pulmonary disease, unspecified; R13.10 Dysphagia, unspecified; K25.9 Gastric ulcer, unspecified as acute or chronic, without hemorrhage or perforation
CPT/HCPCS: 36573; 36600; 71045; 71260; 74178; 80048; 80053; 80061; 80202; 82533; 82803; 82962; 83036; 83540; 83605; 83735; 84100; 84145; 84439; 84443; 84481; 85025; 85610; 85651; 86480; 86592; 86635; 86703; 86756; 86803; 87070; 87081; 87340; 87400; 88104; 88305; 92526; 92610; 93306; 94640; 94664; 97116; 97161; 97164; 97165; 97530; C9113; J0360; J0456; J0690; J0692; J0696; J1644; J1815; J1940; J1956; J2543; J2916; J2920; J2930; J3370; J3480; J7030; J7050; J7070; Q9967